=== PATIENT | male | born 1950 | race Caucasian/White ===

== ENCOUNTER → 2017-07-01 | Outpatient (CLI) | payer MEDICARE, OTHER | LOC: COL.LAB 15:54 | DX: C61 Malignant neoplasm of prostate (principal) | CPT/HCPCS: G0103 ==

== ENCOUNTER → 2017-09-09 | Outpatient (CLI) | payer MEDICARE, OTHER ==
[2017-09-09 18:16] LABS: BASO # 0.1 (0.0-0.2); BASO % 0.5 % (0.0-2.0); EOS # 0.1 (0.0-0.7); EOS % 0.8 % (0-4.0); GRAN # 11.5 (1.4-6.5); GRAN % 78.8 % (42.2-75.2); HEMOGLOBIN 13.5 g/dl (13.5-18.0); LYMPH # 1.6 (1.2-3.4); LYMPH % 11.2 % (20.0-51.0); MEAN CELL VOLUME 88 fl (80.0-100.0); MEAN CORPUSCULAR HEMOGLOBIN 29 pg (27.0-31.0); MEAN CORPUSCULAR HGB CONC 33 g/dl (33.0-37.0); MEAN PLATELET VOLUME 10.7 fl (7.4-10.4); MONO # 1.2 (0.1-0.6); MONO % 8.4 % (1.7-9.3); PLATELET COUNT 353 K/mm3 (130-400); RED BLOOD COUNT 4.64 M/mm3 (4.20-5.60); REDCELL DISTRIBUTION WIDTH-CV 12.5 % (11.5-14.5)
[2017-09-09 18:35] LABS: CALCIUM 9.5 mg/dL (8.4-10.2); POTASSIUM 4.3 mmol/L (3.4-5.0)
== END ==
LOC: COL.LAB 14:05
PROVIDERS: Family Medicine
DX: K92.1 Melena (principal); I10 Essential (primary) hypertension

== ENCOUNTER 2017-09-17 13:20 | Day surgery (SDC) | payer MEDICARE, OTHER ==
[~2017-09-17] VITALS: Ht 175.3 cm; Wt 73.0 kg
[~2017-09-17 13:20] MED LIST: HCTZ12.5TAB PO
[2017-09-17 13:56] VITALS: BP 135/82; PULSE 106; TEMP 99.4
[2017-09-17 16:30] VITALS: BP 119/70; PULSE 95; TEMP 99.8
[2017-09-17 16:45] VITALS: BP 122/70; PULSE 101
[2017-09-17 17:00] VITALS: BP 118/62; PULSE 94
[2017-09-17] MEDS ORDERED: LIALDA 1.2 GM1.2 GM PO (17:06)
== END 2017-09-17 17:25 | disposition home or self-care (01) ==
LOC: SDCO 13:20
DX: K52.9 Noninfective gastroenteritis and colitis, unspecified (principal); K62.89 Other specified diseases of anus and rectum; K92.1 Melena; I10 Essential (primary) hypertension; Z85.46 Personal history of malignant neoplasm of prostate
CPT/HCPCS: J2250; J3010; J7030

== ENCOUNTER → 2018-09-29 | Outpatient (CLI) | payer MEDICARE, OTHER ==
[~2018-09-29] MED LIST changes: +LIALDA 1.2 GM1.2 GM PO
== END ==
LOC: COL.RAD 11:17
DX: M16.11 Unilateral primary osteoarthritis, right hip (principal)